=== PATIENT | male | born 1995 | race Two or more races ===

== ENCOUNTER 2016-10-30 16:26 | Emergency (ER) | payer OTHER ==
[2016-10-30 16:42] VITALS: BP 152/53; PULSE 93; RESP 16; TEMP 98.6; O2SAT 95
--- NOTE | 2016-10-30 16:53 | EDPHY ---
H & P Time Seen by Provider: 10/30/16 16:45 HPI/ROS: CHIEF COMPLAINT: Right middle toe injury HISTORY OF PRESENT ILLNESS: 21-year-old male arrives via private vehicle complaining of acute right middle toe injury appears to be in [place] and impacted his toe against a rock. He is able to bear weight albeit with pain. Occurred approximately 2 hours prior to arrival PHYSICAL EXAM (Prior to examination, patient consented to physical exam, hands were washed and my usual and customary physical exam procedures followed) 1) GENERAL: Well-developed, well-nourished, alert and oriented. Appears to be in no acute distress. 2) HEAD: Normocephalic 3) HEENT: sclera anicteric 4) LUNGS: Breathing comfortably. 5) SKIN: intact. No ecchymosis. No puncture wound. 6) MUSCULOSKELETAL: tender to palpation right middle digit proximal phalanx. No deformity no angulation. Proximally nontender. 7) NEUROLOGIC: Full sensation Smoking Status: Never smoked Constitutional: Initial Vital Signs Temperature (C) 37.0 C 10/30/16 16:38 Heart Rate 93 10/30/16 16:38 Respiratory Rate 16 10/30/16 16:38 Blood Pressure 152/53 H 10/30/16 16:38 O2 Sat (%) 95 10/30/16 16:38 O2 Delivery Mode Room Air Allergies/Adverse Reactions: No Known Allergies Allergy (Unverified 10/30/16 16:38) Home Medications: Medication Instructions Recorded NK [No Known Home Meds] 10/30/16 MDM/Departure - MDM Imaging Results: Xray of the foot interpreted by myself: Proximal phalanx of 3rd toe fracture, nondisplaced Procedures: Procedure: Splint A pedro-tape splint and postoperative shoe splint was applied by ER renal technician. After application of the splint I returned and re-examined the patient. The splint was adequately immobilizing the joint and distal to the splint the patient's circulation and sensation were intact. Patient shows no signs of compartment syndrome. Was given orthopedic precautions. - Depart Disposition: Home, Routine, Self-Care Clinical Impression: Toe fracture, right Qualifiers: Encounter type: initial encounter Toe: lesser toe Fracture type: closed Phalanx : proximal Fracture alignment: nondisplaced Qualified Code(s): S92.514A - Nondisplaced fracture of proximal phalanx of right lesser toe(s), initial encounter for closed fracture Condition: Good Instructions: Toe Fracture (ED) Additional Instructions: Return to the ER immediately if you experience discoloration, have worsening pain, numbness, tingling, or any other symptoms that concern you. If you received x-rays in the emergency department today, be advised, that ligamentous , tendon, muscular, and other non-bony injury cannot be fully ruled out. Try to keep your affected extremity elevated above the level of your chest, and keep cold packs on the affected area, for the next 48 hours. Adult Pain & Fever Control: We recommend Acetaminophen (Tylenol) and Ibuprofen (Motrin,Advil) for pain and fever control. When fever is high or pain severe, both drugs can be used at the same time, but at different intervals. Please note the time differences. Your dose is: Acetaminophen 650mg every 4 to 6 hours Ibuprofen 600mg every 6 hours with food OR Note: do not take Acetaminophen with Hydrocodone (Vicodin, Lortab) or Oycodone (Percocet). These medications also contain Acetaminophen. No more than 3000mg of Acetaminophen should be taken in 24 hours (for an adult). Referrals: Jacki Walker [Doctor of Podiatric Medicine] - 5-7 days, call for appt.
== END 2016-10-30 17:21 | disposition home or self-care (01) ==
DX: S92.511A Displaced fracture of proximal phalanx of right lesser toe(s), initial encounter for closed fracture (principal); W22.8XXA Striking against or struck by other objects, initial encounter
CPT/HCPCS: L3260